=== PATIENT | female | born 1975 | race Two or more races ===

== ENCOUNTER 2025-03-29 14:46 | Inpatient (IN) | payer OTHER ==
[~2025-03-29] VITALS: Ht 162.6 cm; Wt 230.0 kg
--- NOTE | 2025-03-29 15:03 | ED.PDOC ---
General HPI Comments 49-year-old female presents with a chief complaint of left-sided flank pain. Patient was sent over to the ER from [facility] which daughter states that they informed patient "she has a UTI and kidney stones". Patient is unable to speak in full, complete sentences due to the pain. Patient rates her pain a 10/10 at this time. Patient reports that her pain is localized to the left flank. Vital signs were stable on arrival. Patient has complaints of nausea. 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 REGISTERED NURSE History Family History Family History: No family hx of DM, No family hx of HTN Social History Smoker: Non-Smoker Alcohol: Rarely Drugs: Denies Drug Use Lives In: Home Constitutional: denies: chills, diaphoresis, fatigue, fever, malaise, sweats, weakness, others EENTM: denies: blurred vision, double vision, ear bleeding, ear discharge, ear drainage, ear pain, ear ringing, eye pain, eye redness, hearing loss, mouth pain, mouth swelling, nasal discharge, nose bleeding, nose congestion, nose pain, photophobia, tearing, throat pain, throat swelling, voice changes, others Respiratory: denies: cough, hemoptysis, orthopnea, SOB at rest, shortness of breath, SOB with excertion, stridor, wheezing, others Cardiovascular: denies: chest pain, dizzy spells, diaphoresis, Dyspnea on exertion, edema, irregular heart beat, left arm pain, lightheadedness, palpitations, PND, syncope, others Gastrointestinal: reports: nausea; denies: abdomen distended, abdominal pain, blood streaked bowels, constipated, diarrhea, dysphagia, difficulty swallowing, hematemesis, melena, poor appetite, poor fluid intake, rectal bleeding, rectal pain, vomiting, others Genitourinary: reports: flank pain; denies: abnormal vagina bleeding, burning, dyspareunia, dysuria, frequency, hematuria, incontinence, pain, , vagina discharge, urgency, others Neurological: denies: dizziness, fainting, headache, left sided numbness, left sided weakness, numbness, paresthesia, pre-existing deficit, right sided numbness, right sided weakness, seizure, speech problems, tingling, tremors, weakness, others Musculoskeletal: denies: back pain, gout, joint pain, joint swelling, muscle pain, muscle stiffness, neck pain, others Integumetry: denies: bruises, change in color, change in hair/nails, dryness, laceration, lesions, lumps, rash, wounds, others Allergic/Immunocompromised: denies: Difficulty Healing, Frequent Infections, Hives, Itching, others Hematologic/Lymphatic: denies: anemia, blood clots, easy bleeding, easy bruising, swollen glands, others Endocrine: denies: excessive hunger, excessive sweating, excessive thirst, excessive urination, flushing, intolerance to cold, intolerance to heat, unexplained weight gain, unexplained weight loss, others Psychiatric: denies: anxiety, bipolar disorder, depression, hopeless, panic disorder, schizophrenia, sleepless, suicidal, others All Other Systems: Reviewed and Negative Physical Exam General Appearance: Moderate Distress ([id number] distress due to left- sided flank pain concerns. Patient appears to have an occlusive stone), Normal HEENT: Normal ENT Inspection, Pharynx Normal, TMs Normal Neck: Full Range of Motion, Non-Tender, Normal, Normal Inspection Respiratory: Chest Non-Tender, Lungs Clear, No Accessory Muscle Use, No Respiratory Distress, Normal Breath Sounds Cardiovascular: No Edema, No JVD, No Murmur, No Gallop, Normal Peripheral P ulses, Regular Rate/Rhythm Breast Exam: Deferred Gastrointestinal: No Pulsatile Mass, Normal Bowel Sounds, Other (Diffuse left- sided flank pain extending into the abdomen. Definitive CVA tenderness. No signs of trauma. Difficult to assess due to body habitus.) Genitalia: Deferred Pelvic: Deferred Rectal: Deferred Extremities: No calf tenderness, Normal inspection, Non-tender Musculoskeletal : Apperance: Normal Neurologic: Alert, No Motor Deficits, Normal Affect, Normal Mood, No Sensory Deficits Cerebellar Function: NOT DONE Reflexes: NOT DONE Skin: Dry, Normal Color, Warm Lymphatic: No Adenopathy Was a procedure done? Was a procedure done?: No Differential Diagnosis Kidney stone (Female): Other (Kidney stone, hydronephrosis, UTI, pyelonephritis, musculoskeletal pain) X-Ray, Labs, Meds, VS Vital Signs Date Time Temp Pulse Resp B/P (MAP) Pulse Ox O2 Delivery O2 Flow Rate FiO2 03/29/25 15:29 78 18 95 Room Air* 0 21 03/29/25 15:16 98.0 81 24 140/73 (95) 97 98.0 03/29/25 15:16 81 24 140/73 03/29/25 14:47 98.7 86 18 132/81 98 98.7 Lab Test 03/29/25 15:36 Range/Units White Blood Count 9.9 4.4-10.8 10^3/uL Red Blood Count 5.09 4.0-5.20 10^6/uL Hemoglobin 11.2 L 12.2-16.2 g/dL Hematocrit 34.5 L 36.0-46.0 % Mean Corpuscular Volume 67.8 L 80.0-100.0 fL Mean Corpuscular Hemoglobin 21.9 L 28.0-32.0 pg Mean Corpuscular Hemoglobin Concent 32.3 32.0-36.0 g/dL Red Cell Distribution Width 20.8 H 11.8-14.3 % Platelet Count 366 140-450 10^3/uL Mean Platelet Volume 7.3 6.9-10.8 fL Neutrophils (%) (Auto) 74.4 37.0-80.0 % Lymphocytes (%) (Auto) 17.0 10.0-50.0 % Monocytes (%) (Auto) 7.3 0.0-12.0 % Eosinophils (%) (Auto) 0.6 0.0-7.0 % Basophils (%) (Auto) 0.7 0.0-2.0 % Neutrophils # (Auto) 7.4 1.6-8.6 10 ^3/uL Lymphocytes # (Auto) 1.7 0.4-5.4 10 ^3/uL Monocytes # (Auto) 0.7 0-1.3 10 ^3/uL Eosinophils # (Auto) 0.1 0-0.8 10 ^3/uL Basophils # (Auto) 0.1 0-0.2 10 ^3/uL Nucleated Red Blood Cells 0.0 % Platelet Estimate Adequate Hypochromasia (manual) Moderate Anisocytosis (manual) Slight Microcytosis Marked Sodium Level 138 136-145 mmol/L Potassium Level 3.3 L 3.5-5.1 mmol/L Chloride Level 106 98-107 mmol/L Carbon Dioxide Level 21 20-31 mmol/L Anion Gap 11 5-15 Blood Urea Nitrogen 15 9-23 mg/dL Creatinine 1.05 H 0.550-1.02 mg/dL Glomerular Filtration Rate Calc 65 >90 mL/min BUN/Creatinine Ratio 14.3 10.0-20.0 Serum Glucose 128 H 74-106 mg/dL Calcium Level 9.8 8.7-10.4 mg/dL Total Bilirubin 1.4 H 0.2-1.0 mg/dL Aspartate Amino Transferase (AST) 19 13-40 U/L Alanine Aminotransferase (ALT) 20 7-40 U/L Alkaline Phosphatase 73 46-116 U/L Total Protein 7.2 5.7-8.2 g/dL Albumin 4.5 3.2-4.8 g/dL Lipase 31 12-53 U/L Current Medications Medications (Trade) Dose Ordered Sig/Nimsiha Route Start Time Stop Time Status Last Admin Hydromorphone HCl (Dilaudid Injection) 1 mg ONCE ONCE IM 03/29/25 15:15 03/29/25 15:16 DC 03/29/25 15:16 Ondansetron HCl (Zofran) 4 mg ONCE ONCE IM 03/29/25 15:15 03/29/25 15:16 DC 03/29/25 15:12 X-Ray, Labs, Meds, VS Comment All studies performed the ED were evaluated by me personally. Serum studies revealed a hypokalemic state and mild anemia. Imaging studies confirmed a left- sided occlusive kidney stone. Patient will be admitted for pain management as well as fluid resuscitation to hopefully move the occlusive stone. Time of 1ST Reevaluation: 17:21 Reevaluation 1ST: Improved Consultation: PCP Patient Education/Counseling: Diagnosis, Treatment, Need For Follow Up Family Education/Counseling: Diagnosis, Treatment, Need For Follow Up SEPSIS Sepsis Screen Date sepsis recognized/suspect: Mar 29, 2025 Time Sepsis recognized/suspect: 1449 Recent Procedure: No On Antibiotic Therapy: No Respiratory Rate >20: No Heart Rate >90: No Temp<36 C (96.8 F) or >38.3 C: No SBP <90 or MAP <65 mmHG: No New Acute Mental Status Change: No Is the patient on CPAP, BIPAP,: No Physician Orders Urinalysis (03/29/25 15:01) Ct Ab Pel Wo Con-No Oral Or Iv (03/29/25 15:01) Metoclopramide Injection (Reglan Injecti (03/29/25 17:30) Vital Signs Date Time Temp Pulse Resp B/P (MAP) Pulse Ox O2 Delivery O2 Flow Rate FiO2 03/29/25 15:29 78 18 95 Room Air* 0 21 03/29/25 15:16 98.0 81 24 140/73 (95) 97 98.0 03/29/25 15:16 81 24 140/73 03/29/25 14:47 98.7 86 18 132/81 98 98.7 Laboratory Tests Test 03/29/25 15:36 White Blood Count 9.9 10^3/uL (4.4-10.8) Medications Medications Dose Ordered Sig/Nimisha Route Start Time Stop Time Status Last Admin Dose Admin Hydromorphone HCl 1 mg ONCE ONCE IM 03/29/25 15:15 03/29/25 15:16 DC 03/29/25 15:16 Ondansetron HCl 4 mg ONCE ONCE IM 03/29/25 15:15 03/29/25 15:16 DC 03/29/25 15:12 Departure 1 Departure Time of Disposition: 17:21 Impression: Primary Impression: Hydronephrosis concurrent with and due to calculi of kidney and ureter Additional Impressions: Hypokalemia Anemia Disposition: ADMITTED INPATIENT Condition: Fair e-Prescriptions No Active Prescriptions or Reported Meds Discharged With: Self, Relative Critical Care Note Critical Care Time?: No Stability Stability form required: No Heart Score Heart Score: Heart Score Response (Comments) Value History N/A 0 EKG N/A 0 Age N/A 0 Risk Factors N/A 0 Troponin N/A 0 Total 0 I personally scribed for BRAYDEN DICKERSON PAC ([email or web address]) on 03/29/25 at 15:03. Electronically submitted by Jacob Brown ([email or web address]). BRAYDEN DICKERSON PAC Mar 29, 2025 15:03
[2025-03-29] MEDS: ONDANSETRON HCL 4 MG/2 ML VIAL IM ONE (15:12)
[2025-03-29] MEDS: HYDROmorphone HCL 2 MG/ML VL/or syr IM ONE (15:16)
[2025-03-29 15:29] VITALS: PULSE 78; RESP 18; O2SAT 95
[2025-03-29 15:51] LABS: Hemoglobin 11.2 g/dL (12.2-16.2); Nucleated Red Blood Cells % 0.0 %
[2025-03-29 15:53] LABS: Hematocrit 34.5 % (36.0-46.0); Mean Corpuscular Hemoglobin 21.9 pg (28.0-32.0); Mean Corpuscular Volume 67.8 fL (80.0-100.0)
[2025-03-29 15:58] LABS: Anisocytosis Slight
[2025-03-29 16:04] LABS: Alanine Aminotransferase 20 U/L (7-40); Albumin 4.5 g/dL (3.2-4.8); Alkaline Phosphatase 73 U/L (46-116); Anion Gap 11 (5-15); BUN/Creatinine Ratio 14.3 (10.0-20.0); Blood Urea Nitrogen 15 mg/dL (9-23); Calcium 9.8 mg/dL (8.7-10.4); Carbon Dioxide 21 mmol/L (20-31); Chloride 106 mmol/L (98-107); Lipase 31 U/L (12-53); Sodium 138 mmol/L (136-145); Total Protein 7.2 g/dL (5.7-8.2)
[2025-03-29 16:06] LABS: Bilirubin, Total 1.4 mg/dL (0.2-1.0); Glucose 128 mg/dL (74-106); Potassium 3.3 mmol/L (3.5-5.1)
--- NOTE | 2025-03-29 16:16 | DVH ---
Indication: Left-sided flank pain Technique: CT axial images of the abdomen and pelvis are obtained without contrast. Coronal and sagit harsha reformats were obtained. Radiation Dose Information: CTDI volume is 24.53 mGy. Dose-length product is 1223.19 mGy*cm Comparison: None FINDINGS: There is limited interpretation of the abdomen and pelvis without administration of intravenous contr ast. The lung bases demonstrate no pleural effusion. Adrenal glands, spleen and pancreas unremarkable in shape. Hepatic steatosis. Cholecystectomy. The right kidney demonstrates no hydronephrosis or nephrolithiasis. The left kidney demonstrates mil [id number] left hydroureteronephrosis secondary to distal left ureteral calculus just before the U VJ measuring 6 mm. Stomach is partially distended. Small bowel loops are normal in caliber. Colonic diverticular disease. Appendix removed. Moderate volume stool in the colon. Bladder nondiste nded. Right ovarian/ adnexal cystic lesion measuring 2.7 cm. Intrauterine device. No free pelvic fl uid. No inguinal lymphadenopathy. IMPRESSION: Limited evaluation without contrast. [id number] left hydroureteronephrosis secondary to 6 mm calculus of the distal left ureter just before the UVJ. Colonic diverticular disease. 2.7 cm right ovarian/ adnexal cystic lesion. Hepatic steatosis. Intrauterine device. Other findings as described.
[2025-03-29] MEDS: METOCLOPRAMIDE HCL 5MG/ml INJ 2ml VIAL IV ONE (18:41)
[2025-03-29] MEDS: POTASSIUM EFFERVESENT TAB 25 MEQ PO ONE (19:41)
--- NOTE | 2025-03-29 19:53 | DVHHP2 ---
Admitting Diagnosis: Flank pain History of Present Illness 49-year-old female presents with a chief complaint of left-sided flank pain. Patient was sent over to the ER from [place] [facility] which daughter states that they informed patient "she has a UTI and kidney stones". Patient is unable to speak in full, complete sentences due to the pain. Patient rates her pain a 10/10 at this time. Patient reports that her pain is localized to the left flank. Vital signs were stable on arrival. Patient has complaints of nausea. 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 ROOM ATTENDANT History Family History Family History: No family hx of DM, No family hx of HTN Social History Smoker: Non-Smoker Alcohol: Rarely Drugs: Denies Drug Use Lives In: Home Patient Family History: Family history: Diabetes in G8 MOTHER Family history: Hypertension G8 FATHER Allergies: Coded Allergies: NO KNOWN ALLERGIES (Unverified , 06/26/16) Home Meds No Active Prescriptions or Reported Meds Current Medications Current Medications Medications (Trade) Dose Ordered Sig/Nimisha Route PRN Reason Start Time Stop Time Status Last Admin Tamsulosin HCl (Flomax) 0.4 mg QPM PO 03/30/25 18:00 UNV Vital Signs Vital Signs Date Time Temp Pulse Resp B/P (MAP) Pulse Ox O2 Delivery O2 Flow Rate FiO2 03/29/25 19:45 97.6 64 19 143/69 (93) 99 97.6 03/29/25 15:29 Room Air* 0 21 Physical Exam Generally-49 years old woman, morbidly obese, sitting on chair. Moderate distress HEENT-atraumatic normocephalic Heart-regular rate and rhythm Lungs clear to auscultate abdomen soft nontender nondistended Musculoskeletal-no edema cyanosis Neuro-AO focal deficits SEPSIS Sepsis Screen Date sepsis recognized/suspect: Mar 29, 2025 Time Sepsis recognized/suspect: 1450 Recent Procedure: No On Antibiotic Therapy: No Respiratory Rate >20: No Heart Rate >90: No Temp<36 C (96.8 F) or >38.3 C: No SBP <90 or MAP <65 mmHG: No New Acute Mental Status Change: No Is the patient on CPAP, BIPAP,: No Physician Orders Urinalysis (03/29/25 15:01) Ct Ab Pel Wo Con-No Oral Or Iv (03/29/25 15:01) Tamsulosin Hydrochloride (Flomax) (03/30/25 18:00) Sodium Chloride 0.9% (03/29/25 20:45) Morphine Sulfate Injection (03/29/25 20:45) * Urology Consult (03/29/25 20:35) Ceftriaxone Ivpb Rocephin (03/30/25 09:00) Urine Bacterial Culture (03/29/25 20:35) Ketorolac Injection (Toradol Injection) (03/29/25 20:45) Regular Diet (03/30/25 Breakfast) Npo After Midnight (03/29/25 20:35) Npo (Nothing By Mouth) Diet (03/30/25 Breakfast) Pantoprazole (Protonix) (03/30/25 10:00) Admit (03/29/25 20:35) Code Status (03/29/25 20:35) Vital Signs .PER UNIT PROTOCOL (03/29/25 20:35) Review Orders With Adm.Md (03/29/25 20:35) Sodium Chloride Lock (Saline Lock Ns) (03/29/25 22:00) Docusate Sodium Capsule (Colace Capsule) (03/29/25 20:45) Acetaminophen Tablet (Tylenol Tablet) (03/29/25 20:45) Notify Md Of Changes From Base (03/29/25 20:35) Advance Directive (03/29/25 20:35) Patient Condition (03/29/25 20:35) Allergies (03/29/25 20:35) Hydrocodone-Acet 5/325mg Tab ([place] 5/32 (03/29/25 20:45) Ondansetron Hcl (Zofran) (03/29/25 20:45) Morphine 2mg Iv Q4hprn (03/29/25 20:45) Vital Signs Date Time Temp Pulse Resp B/P (MAP) Pulse Ox O2 Delivery O2 Flow Rate FiO2 03/29/25 19:45 97.6 64 19 143/69 (93) 99 97.6 03/29/25 18:50 71 16 109/64 03/29/25 15:29 78 18 95 Room Air* 0 21 03/29/25 15:16 98.0 81 24 140/73 (95) 97 98.0 03/29/25 15:16 81 24 140/73 03/29/25 14:47 98.7 86 18 132/81 98 98.7 Laboratory Tests Test 03/29/25 15:36 White Blood Count 9.9 10^3/uL (4.4-10.8) Medications Medications Dose Ordered Sig/Nimisha Route Start Time Stop Time Status Last Admin Dose Admin Hydromorphone HCl 1 mg ONCE ONCE IM 03/29/25 15:15 03/29/25 15:16 DC 03/29/25 15:16 Metoclopramide HCl 10 mg ONCE ONCE IV 03/29/25 17:30 03/29/25 17:31 DC 03/29/25 18:41 Ondansetron HCl 4 mg ONCE ONCE IM 03/29/25 15:15 03/29/25 15:16 DC 03/29/25 15:12 Potassium Bicarbonate 25 meq ONCE ONCE PO 03/29/25 17:30 03/29/25 19:32 DC 03/29/25 19:41 Results Labs Test 03/29/25 15:36 Range/Units White Blood Count 9.9 4.4-10.8 10^3/uL Red Blood Count 5.09 4.0-5.20 10^6/uL Hemoglobin 11.2 L 12.2-16.2 g/dL Hematocrit 34.5 L 36.0-46.0 % Mean Corpuscular Volume 67.8 L 80.0-100.0 fL Mean Corpuscular Hemoglobin 21.9 L 28.0-32.0 pg Mean Corpuscular Hemoglobin Concent 32.3 32.0-36.0 g/dL Red Cell Distribution Width 20.8 H 11.8-14.3 % Platelet Count 366 140-450 10^3/uL Mean Platelet Volume 7.3 6.9-10.8 fL Neutrophils (%) (Auto) 74.4 37.0-80.0 % Lymphocytes (%) (Auto) 17.0 10.0-50.0 % Monocytes (%) (Auto) 7.3 0.0-12.0 % Eosinophils (%) (Auto) 0.6 0.0-7.0 % Basophils (%) (Auto) 0.7 0.0-2.0 % Neutrophils # (Auto) 7.4 1.6-8.6 10 ^3/uL Lymphocytes # (Auto) 1.7 0.4-5.4 10 ^3/uL Monocytes # (Auto) 0.7 0-1.3 10 ^3/uL Eosinophils # (Auto) 0.1 0-0.8 10 ^3/uL Basophils # (Auto) 0.1 0-0.2 10 ^3/uL Nucleated Red Blood Cells 0.0 % Platelet Estimate Adequate Hypochromasia (manual) Moderate Anisocytosis (manual) Slight Microcytosis Marked Sodium Level 138 136-145 mmol/L Potassium Level 3.3 L 3.5-5.1 mmol/L Chloride Level 106 98-107 mmol/L Carbon Dioxide Level 21 20-31 mmol/L Anion Gap 11 5-15 Blood Urea Nitrogen 15 9-23 mg/dL Creatinine 1.05 H 0.550-1.02 mg/dL Glomerular Filtration Rate Calc 65 >90 mL/min BUN/Creatinine Ratio 14.3 10.0-20.0 Serum Glucose 128 H 74-106 mg/dL Calcium Level 9.8 8.7-10.4 mg/dL Total Bilirubin 1.4 H 0.2-1.0 mg/dL Aspartate Amino Transferase (AST) 19 13-40 U/L Alanine Aminotransferase (ALT) 20 7-40 U/L Alkaline Phosphatase 73 46-116 U/L Total Protein 7.2 5.7-8.2 g/dL Albumin 4.5 3.2-4.8 g/dL Lipase 31 12-53 U/L Primary Diagnosis Acute urinary tract infection Left renal calculus with mild hydronephrosis Plan CT abdomen and pelvis shows left renal calculus with mild hydronephrosis Urology consult IV fluids Start tamsulosin Pain control Antiemetic Regular diet NPO after midnight for broad-spectrum coverage Full code SCD for DVT prophylaxis for possible procedure PPI for GI prophylaxis Plan discussed with: Patient Date of Service: Mar 29, 2025 Billing Provider: DEANN BAXTER MD Common Visit Codes: [id number] INP/OBS CARE (HIGH) DEANN BAXTER MD Mar 29, 2025 19:53
[2025-03-29] MEDS ORDERED: ACETAMINOPHEN 325 MG TAB PO PRN (20:45)
[2025-03-29] MEDS ORDERED: DOCUSATE SOD 100 MG CAP PO PRN (20:45)
[2025-03-29] MEDS ORDERED: MORPHINE SULFATE INJ 2 MG/ml SYRG IV PRN (20:45)
[2025-03-29] MEDS: MORPHINE SULFATE 4 MG/ML SYR/VIAL IV ONE (21:24)
[2025-03-29] MEDS: SODIUM CHLORIDE 0.9% 1,000 ML IV ONE (21:24)
[2025-03-29] MEDS: ONDANSETRON HCL 4 MG/2 ML VIAL IV PRN (21:24)
[2025-03-29] MEDS: SODIUM CHLOR 0.9% PF (SALINE LOCK) 10ML VIAL/SYR IV SCH (21:24)
[2025-03-30 01:00] VITALS: BP 143/81; PULSE 67; RESP 20; TEMP 97.6; O2SAT 96
[2025-03-30] MEDS: HYDROcodone-ACET 5/325MG TAB PO PRN (01:12)
[2025-03-30 03:16] LABS: Urine Protein, UAD Negative (Negative)
[2025-03-30 05:00] VITALS: BP 129/67; PULSE 65; RESP 19; TEMP 98; O2SAT 96
[2025-03-30 07:46] VITALS: BP 120/64; PULSE 64; RESP 18; RESP 19; TEMP 98.6; O2SAT 97
[2025-03-30 07:46] LABS: Nucleated Red Blood Cells % 0.0 %
[2025-03-30 07:53] LABS: Hematocrit 34.9 % (36.0-46.0); Hemoglobin 10.9 g/dL (12.2-16.2); Mean Corpuscular Hemoglobin 21.3 pg (28.0-32.0); Mean Corpuscular Volume 68.3 fL (80.0-100.0)
[2025-03-30 07:56] LABS: Alanine Aminotransferase 21 U/L (7-40); Albumin 4.4 g/dL (3.2-4.8); Alkaline Phosphatase 70 U/L (46-116); Anion Gap 10 (5-15); BUN/Creatinine Ratio 10.7 (10.0-20.0); Bilirubin, Total 1.0 mg/dL (0.2-1.0); Blood Urea Nitrogen 13 mg/dL (9-23); Calcium 9.6 mg/dL (8.7-10.4); Carbon Dioxide 24 mmol/L (20-31); Chloride 104 mmol/L (98-107); Potassium 3.8 mmol/L (3.5-5.1); Sodium 138 mmol/L (136-145); Total Protein 7.0 g/dL (5.7-8.2)
[2025-03-30 08:18] LABS: Glucose 114 mg/dL (74-106)
[2025-03-30] MEDS: KETOROLAC TROMETH 30 MG/ML 1ML VIAL IV PRN (08:47)
[2025-03-30] MEDS: cefTRIAXone 1GM/50ML D5W 50 ML IV SCH (08:47)
[2025-03-30] MEDS: PANTOPRAZOLE 40 MG/10 ML VIAL INJ IV SCH (12:01)
--- NOTE | 2025-03-30 13:15 | DVHPN2 ---
Reviewed: Care Plan, H&P, Labs, Medications, Previous Orders, Radiology Changes from previous H/P or p: No Changes Objective Vitals Vital Signs Date Time Temp Pulse Resp B/P (MAP) Pulse Ox O2 Delivery O2 Flow Rate FiO2 03/30/25 07:46 98.6 64 19 120/64 (82) 97 98.6 03/30/25 07:46 Room Air* 0 21 Medications Current Medications Medications Dose Ordered Sig/Nimisha Route Start Time Stop Time Status Last Admin Dose Admin Tamsulosin HCl 0.4 mg QPM PO 03/30/25 18:00 Ceftriaxone Sodium 50 ml @ 100 mls/hr DAILY@09 IV 03/30/25 09:00 03/30/25 08:47 100 MLS/HR Ketorolac Tromethamine 15 mg Q6HPRN PRN IV 03/29/25 20:45 04/03/25 20:44 03/30/25 08:47 15 MG Pantoprazole Sodium 40 mg DAILY IV 03/30/25 10:00 03/30/25 12:01 40 MG Sodium Chloride 10 ml Q8HR IV 03/29/25 22:00 03/30/25 05:53 10 ML Docusate Sodium 100 mg BIDPRN PRN PO 03/29/25 20:45 Acetaminophen 650 mg Q6HP PRN PO 03/29/25 20:45 Acetaminophen/ Hydrocodone Bitart 1 tab Q4HP PRN PO 03/29/25 20:45 03/30/25 01:12 1 TAB Ondansetron HCl 4 mg Q4HP PRN IV 03/29/25 20:45 03/29/25 21:24 4 MG Morphine Sulfate 2 mg Q4HPRN PRN IV 03/29/25 20:45 Laboratory Results Laboratory Tests 03/30/25 06:24 Chemistry Test 03/29/25 15:36 03/30/25 06:24 Albumin 4.5 g/dL (3.2-4.8) 4.4 g/dL (3.2-4.8) Calcium Level 9.8 mg/dL (8.7-10.4) 9.6 mg/dL (8.7-10.4) Total Protein 7.2 g/dL (5.7-8.2) 7.0 g/dL (5.7-8.2) Lipid panel Test 03/29/25 15:36 Lipase 31 U/L (12-53) LFT Test 03/29/25 15:36 03/30/25 06:24 Alanine Aminotransferase (ALT) 20 U/L (7-40) 21 U/L (7-40) Alkaline Phosphatase 73 U/L (46-116) 70 U/L (46-116) Aspartate Amino Transferase (AST) 19 U/L (13-40) 25 U/L (13-40) Total Bilirubin 1.4 mg/dL (0.2-1.0) H 1.0 mg/dL (0.2-1.0) Urinalysis Test 03/30/25 02:33 Urine Color Yellow (Yellow) Urine Clarity Clear (Clear) Urine pH 7.5 (5.0-9.0) Urine Specific Sharon 1.022 (1.001-1.035) Urine Protein Negative (Negative) Urine Ketones Negative (Negative) Urine Blood Negative /uL (Negative) Urine Nitrite Negative (Negative) Urine Bilirubin Negative (Negative) Urine Urobilinogen Normal mg/dL (Negative) Urine Leukocyte Esterase Negative /uL (Negative) Urine Glucose 2+ mg/dL (Normal) H Labs and/or images reviewed: Labs reviewed by me, Image(s) reviewed by me Assessment/Plan Assessment/Plan Acute left flank pain 6 mm left distal ureteral stone with hydronephrosis: Consult for Urology Dr. Munoz, Flomax, tramadol Acute dehydration: IV fluids Sepsis possibly secondary to urinary tract infection: Rocephin Patient is not stable for transfer to [facility] gave authorization for admission and treatment Time spent 48 minutes Plan discussed with: Patient Date of Service: Mar 30, 2025 Billing Provider: MEL TUCKER MD Common Visit Codes: [id number] INP/OBS CARE(HIGH) MEL TUCKER MD Mar 30, 2025 13:15
[2025-03-30] MEDS ORDERED: TAMSULOSIN HYDROCHLORIDE 0.4 MG CAP PO SCH (18:00)
--- NOTE | 2025-03-31 09:18 | DVHDS2 ---
Discharge Summary Date of Admission Mar 29, 2025 at 20:35 Date of Discharge: Mar 30, 2025 Admitting Diagnosis Left flank pain Wounds: None Labs/Diagnostic Data: Laboratory Results Test 03/30/25 06:24 03/30/25 02:33 03/29/25 15:36 White Blood Count 13.4 10^3/uL (4.4-10.8) Red Blood Count 5.11 10^6/uL (4.0-5.20) Hemoglobin 10.9 g/dL (12.2-16.2) Hematocrit 34.9 % (36.0-46.0) Mean Corpuscular Volume 68.3 fL (80.0-100.0) Mean Corpuscular Hemoglobin 21.3 pg (28.0-32.0) Mean Corpuscular Hemoglobin Concent 31.2 g/dL (32.0-36.0) Red Cell Distribution Width 21.0 % (11.8-14.3) Platelet Count 343 10^3/uL (140-450) Mean Platelet Volume 7.6 fL (6.9-10.8) Neutrophils (%) (Auto) 84.9 % (37.0-80.0) Lymphocytes (%) (Auto) 7.5 % (10.0-50.0) Monocytes (%) (Auto) 7.2 % (0.0-12.0) Eosinophils (%) (Auto) 0.1 % (0.0-7.0) Basophils (%) (Auto) 0.3 % (0.0-2.0) Neutrophils # (Auto) 11.4 10 ^3/uL (1.6-8.6) Lymphocytes # (Auto) 1.0 10 ^3/uL (0.4-5.4) Monocytes # (Auto) 1.0 10 ^3/uL (0-1.3) Eosinophils # (Auto) 0 10 ^3/uL (0-0.8) Basophils # (Auto) 0 10 ^3/uL (0-0.2) Nucleated Red Blood Cells 0.0 % Sodium Level 138 mmol/L (136-145) Potassium Level 3.8 mmol/L (3.5-5.1) Chloride Level 104 mmol/L (98-107) Carbon Dioxide Level 24 mmol/L (20-31) Anion Gap 10 (5-15) Blood Urea Nitrogen 13 mg/dL (9-23) Creatinine 1.21 mg/dL (0.550-1.02) Glomerular Filtration Rate Calc 55 mL/min (>90) BUN/Creatinine Ratio 10.7 (10.0-20.0) Serum Glucose 114 mg/dL (74-106) Calcium Level 9.6 mg/dL (8.7-10.4) Total Bilirubin 1.0 mg/dL (0.2-1.0) Aspartate Amino Transferase (AST) 25 U/L (13-40) Alanine Aminotransferase (ALT) 21 U/L (7-40) Alkaline Phosphatase 70 U/L (46-116) Total Protein 7.0 g/dL (5.7-8.2) Albumin 4.4 g/dL (3.2-4.8) Urine Color Yellow (Yellow) Urine Clarity Clear (Clear) Urine pH 7.5 (5.0-9.0) Urine Specific [place] 1.022 (1.001-1.035) Urine Protein Negative (Negative) Urine Ketones Negative (Negative) Urine Blood Negative /uL (Negative) Urine Nitrite Negative (Negative) Urine Bilirubin Negative (Negative) Urine Urobilinogen Normal mg/dL (Negative) Urine Leukocyte Esterase Negative /uL (Negative) Urine Glucose 2+ mg/dL (Normal) Platelet Estimate Adequate Hypochromasia (manual) Moderate Anisocytosis (manual) Slight Microcytosis Marked Lipase 31 U/L (12-53) Other Laboratory Tests 03/30/25 06:24 Brief Hx & Hospital Course: 49-year-old female came in with a left flank pain found to have 6 mm left distal ureteral stone with hydronephrosis treated with the Flomax tramadol IV fluids and pain medications urology consult for Dr. Munoz mild urinary tract infection treated with Rocephin while awaiting consultation by Dr. Munoz patient decided to leave AMA and left AMA from the holding room in ER. She advised the nurse that she is going to go to [place]. Condition satisfactory at the time of leaving AMA Consults/Reason for consult Urology Dr. Munoz pending but patient left AMA Operations or Procedures CT abdomen pelvis without contrast Condition at Discharge: Fair Final Diagnosis/Problems List Assessment/Plan Acute left flank pain 6 mm left distal ureteral stone with hydronephrosis: Consult for Urology Dr. Munoz, Flomax, tramadol Acute dehydration: IV fluids Sepsis possibly secondary to urinary tract infection: Rocephin Discharge Disposition: AMA Discharge Instruct/Medications Diet comment: Not applicable Patient left AMA Activity comment: Not applicable Patient left AMA Follow Up/Referral: Not applicable Patient left AMA Medications: Not applicable Patient left AMA No Active Prescriptions or Reported Meds 35 (Time taken for discharge summary 35 minutes) Discharge Statement: "Patient was advised to return to the ER or call 911 if any headaches, dizziness, shortness of breath, chest pain, abdominal pain, bleeding, fevers, or worsening of medical condition. Patient was counseled about treatment plan, medications, possible side effects, patientverbalized understanding. All questions were answered to the best of my ability. This discharge took greater then 30 minutes in planning, reviewing documentation, counseling the patient, and discussing with other team members." ASSESSMENT ASSESSMENT Hospital Course Improved Assessment Date of Service: Mar 31, 2025 Billing Provider: MEL TUCKER MD Common Visit Codes: [id number] INP/OBS CARE(HIGH) MEL TUCKER MD Mar 31, 2025 09:18
== END 2025-03-30 14:05 | disposition left against medical advice (07) | DRG 872 ==
LOC: ER 14:51 → OVERFLOW 20:35
PROVIDERS: ADMIT Internal Medicine; ATTEND Internal Medicine
DX: A41.9 Sepsis, unspecified organism (principal); N13.6 Pyonephrosis; E87.6 Hypokalemia; E86.0 Dehydration; D64.9 Anemia, unspecified; Z53.29 Procedure and treatment not carried out because of patient's decision for other reasons; Z82.49 Family history of ischemic heart disease and other diseases of the circulatory system; Z83.3 Family history of diabetes mellitus
CPT/HCPCS: 36415; 74176; 80053; 81003; 83690; 85025; 87086; 96372; 96374; G0378; J1885; J2405; J2470